=== PATIENT | female | born 1985 | race Caucasian/White ===

== ENCOUNTER 2019-02-18 19:36 | Emergency (ER) | payer SELFPAY ==
[~2019-02-18] VITALS: Ht 162.6 cm; Wt 66.7 kg
[2019-02-18 19:53] VITALS: Ht 162.6 cm; Wt 66.7 kg
[2019-02-18 20:52] VITALS: BP 110/75
== END 2019-02-18 20:52 | disposition home or self-care (01) ==
LOC: ED 19:36
DX: L50.9 Urticaria, unspecified (principal); E11.9 Type 2 diabetes mellitus without complications; Z98.890 Other specified postprocedural states